=== PATIENT | female | born 1965 | race Caucasian/White ===

== ENCOUNTER → 2021-10-22 14:20 | Outpatient (BNVA) | payer OTHER, SELFPAY | PROVIDERS: Visit Provider Orthopaedic Surgery | DX: M54.50 Low back pain, unspecified (principal); M25.552 Pain in left hip; M25.551 Pain in right hip | CPT/HCPCS: 72100; 73522 ==

== ENCOUNTER 2021-12-16 10:09 | Outpatient (CLI) | payer OTHER, SELFPAY ==
--- NOTE | 2021-12-16 10:45 | MR_ITS ---
WS: [id number] MRI LUMBAR SPINE NONCONTRAST HISTORY: back pain, LEFT leg pain greater than RIGHT. COMPARISON: 10/31/2020 TECHNIQUE: Sagittal and axial multisequence imaging is submitted. Cervical spine osteophytes at C3-4 encroach upon the ventral thecal sac. Normal lumbar alignment. Marrow edema extends throughout the endplates of L4 and L5 with disc space n arrowing and desiccation. Minimal disc desiccation without narrowing at L5-S1. No fracture. Conus terminates normally at L1-2 disc level. L1-L2: Normal. L2-L3: Normal. L3-L4: Mild ligamentum flavum hypertrophy and facet arthritis. No stenosis. L4-L5: Diffuse annular disc bulging with a central disc protrusion contacting the ventral thecal sac and the traversing L5 nerve roots. There is an annular fissure in the RIGHT foramen. Marked ligamentu m flavum and facet arthritis. Increased fluid in the facet joints with widening up to 6.5 mm. Disc an d osteophyte extension into the foramina. Moderate to severe central and bilateral subarticular reces s stenosis and mild to moderate foraminal stenosis. L5-S1: Mild annular disc bulge with mild ligamentum flavum hypertrophy and facet arthritis. No stenos is. Paravertebral soft tissues are normal. MR/MR lumbar spine wo con* [id number] IMPRESSION: 1. Moderate to severe central and bilateral subarticular recess stenosis L4-5 with mild to moderate foraminal stenosis. Stenoses due to combination of disc a nd disc protrusions with facet and ligamentum flavum hypertrophy. Most signific ant contact on the L5 traversing nerve roots. Mild progression of stenosis sinc e the prior study. 2. Widening and increase fluid in the facet joints at L4-5.
== END 2021-12-16 10:10 | disposition home or self-care (01) ==
PROVIDERS: Visit Provider Orthopaedic Surgery
DX: M48.061 Spinal stenosis, lumbar region without neurogenic claudication (principal); M54.50 Low back pain, unspecified; M79.605 Pain in left leg; M79.604 Pain in right leg
CPT/HCPCS: 72148

== ENCOUNTER 2021-12-18 13:12 | Inpatient (IN) | payer OTHER, SELFPAY ==
[2021-12-16 13:22] VITALS: BMI 33.7
--- NOTE | 2021-12-16 13:23 | P.ANESASSM_ITS ---
Pre-Anesthetic Assessment Height/Weight: Height 1.73 m Preop Diagnosis: Spondylolisthesis L4-5 with stenosis Operation Date: 12/18/21 12:10 Proposed Procedures p Posterior Lumbar Interbody Fusion L4/5 [id number](Not Applicable) - Bran Estrada, Familial anesthetic complications: Hard time waking up Had a seizure during both of her c-sections Social No alcohol and No tobacco Exam alert, oriented x 3, clear to auscultation bilaterally and regular rate & rhythm Airway Dentition: false Pulmonary None reported CV/HEM Hypertension None reported Hepatic None reported GI gastric sleeve Metabolic Diabetes Mellitus [facility] [place]/skel Lower Back Pain Neuropsych Seizure (during her c-sections (grand mal)) Anesthetic Plan ASA status: 3 Anesthesia: General Risk of > 500 ml blood loss (7ml/kg in children): Yes, adequate IV access and fluids planned Medications/Allergies Home Medications Medication Instructions Recorded Confirmed Last Taken Type atorvastatin 20 mg tablet (Lipitor) 20 mg PO DAILY 10/22/21 12/16/21 Unknown History canagliflozin 300 mg tablet 300 mg PO DAILY 10/22/21 12/16/21 Unknown History (Invokana) duloxetine 30 mg capsule,delayed 30 mg PO DAILY 10/22/21 12/16/21 Unknown History release (Cymbalta) gabapentin 800 mg tablet 800 mg PO TID 10/22/21 12/16/21 Unknown History lisinopril 20 1 tab PO DAILY 10/22/21 12/16/21 Unknown History mg-hydrochlorothiazide 25 mg tablet metformin 1,000 mg tablet 1,000 mg PO BID 10/22/21 12/16/21 Unknown History diazepam 5 mg tablet (Valium) 5 mg PO ONCE 1 Days #1 tab 12/10/21 12/16/21 Unknown Rx cyclobenzaprine 10 mg tablet mg 12/16/21 Unknown History semaglutide (Ozempic) 0.25 mg SUBCUT UNK 12/16/21 12/16/21 Unknown History Allergies Allergy/AdvReac Type Severity Reaction Status Date / Time NSAIDS (Non-Steroidal Allergy ALGY-Rash Verified 12/16/21 12:54 Anti-Inflamma PFSH Anesthesia Social History Smoking and tobacco status: former smoker Data Anesthesia Cardiac Studies: No Data to Display
[2021-12-16 14:45] LABS: Anion Gap 20.8 (5-19); Blood Urea Nitrogen 52 mg/dL (6-20); Calcium 9.9 mg/dL (8.5-10.5); Carbon Dioxide 21 mmol/L (22-29); Chloride 99 mmol/L (98-107); Glomerular Filtration Rate 33.5 mL/min (90-130); Glucose 100 mg/dL (65-115); Osmolality Calculated 296 mOsm/kg (285-295); Potassium 4.8 mmol/L (3.5-5.1); Sodium 136 mmol/L (136-145)
[2021-12-18] VITALS (22 sets, daily range): BP systolic 95–125; BP diastolic 55–76; PULSE 57–89; RESP 14–20; TEMP 36.2–36.8; O2SAT 92–100; BMI 36.0
--- NOTE | 2021-12-18 | SCC_ITS ---
Procedure done: 1. L4/5 Interbody fusion with posterolateral fusion 2. Instrumentation L4/5 3. Cage at L4/5 4. Laminectomy L4 with partial facetectomies L4/5 5. use of autograft from same incision 6. allograft 7. Bone marrow aspirate from right Iliac crest 8. computer navigation/ stereotactic for spine 1 seconds of fluoroscopic guidance, for a cumulative dose of 77.2 mGy, was provided to Dr. Estrada by the radiology department. C-arm images of the lumbar spine were saved for the patient's permanent record. CECELIA
--- NOTE | 2021-12-18 | XR_ITS ---
WS: [id number] XR lumbar spine 2-3V* [id number] REASON FOR EXAM: plif l4/5 FINDINGS: Bilateral posterior pedicle screws at L4 and L5. Interbody fusion device at L4-L5. Surgical appliances appear in proper position and alignment. XR/XR lumbar spine 2-3V* [id number] IMPRESSION: Intraoperative images of L4-L5 surgery as above.
--- NOTE | 2021-12-18 10:59 | PM.HP ---
Providers/Chief Complaint Chief Complaint: PLIF L4/5 [id number] History of Present Illness Caroline Silva is a 56 year old female low back pain. Patient rates her pain 12/08 at todays visit. Patient states her pain has been on going for several years, aggressively getting worse. Patient states her pain is located in her tailbone and lower back, that radiates into her groin and hips. She states it occasionally travels down her legs. She states her pain is aggravated when she is standing and walking. Her pain is alleviated by sitting. She states her pain is worse in the mornings. She complains of loss of bladder control. Patient states she has tried physical therapy, chiropractic therapies, and epidural injections at pain management in [place] with no comfort from any treatment.? Review of Systems General: Reports: 10 or more systems reviewed and unremarkable except in HPI and below Const: Denies: fever(s) Eyes: Denies: eye discharge ENMT: Denies: throat pain Card: Denies: chest pain Resp: Denies: dyspnea GI: Denies: nausea or vomiting : Reports: urinary incontinence Musc: Reports: back pain Skin/Breast: Denies: rash Psych: Denies: anxiety Endo: Denies: polyuria Eddie/Lymph: Denies: easy bruising All/Imm: Denies: facial swelling Medications/Allergies Home Medications Medication Instructions Recorded Confirmed Last Taken Type atorvastatin 20 mg tablet (Lipitor) 20 mg PO DAILY 10/22/21 12/18/21 12/17/21 History canagliflozin 300 mg tablet 300 mg PO DAILY 10/22/21 12/18/21 12/17/21 History (Invokana) duloxetine 30 mg capsule,delayed 30 mg PO DAILY 10/22/21 12/18/21 12/17/21 History release (Cymbalta) gabapentin 800 mg tablet 800 mg PO TID 10/22/21 12/18/21 12/17/21 History lisinopril 20 1 tab PO DAILY 10/22/21 12/18/21 12/17/21 History mg-hydrochlorothiazide 25 mg tablet metformin 1,000 mg tablet 1,000 mg PO BID 10/22/21 12/18/21 12/17/21 History diazepam 5 mg tablet (Valium) 5 mg PO ONCE 1 Days #1 tab 12/10/21 12/16/21 Unknown Rx cyclobenzaprine 10 mg tablet 10 mg PO TID PRN 12/16/21 12/18/21 12/17/21 History semaglutide (Ozempic) 0.25 mg SUBCUT DIRECTED 12/16/21 12/18/21 12/17/21 History Allergies Allergy/AdvReac Type Severity Reaction Status Date / Time NSAIDS (Non-Steroidal Allergy ALGY-Rash Verified 12/16/21 12:54 Anti-Inflamma PFSH Acute PFSH: Social History Smoking and tobacco status: former smoker Vitals/I&O/Wt Last Vital Signs Temp 97.3 F L 12/18/21 10:46 Pulse 78 12/18/21 10:46 Resp 16 12/18/21 10:46 BP 108/68 12/18/21 10:46 Pulse Ox 100 12/18/21 10:46 Weight last 48 hrs Weight 229 lb Physical Exam Narrative: CONSTITUTIONAL: The patient is a normal appearing [] in no apparent distress. GENERAL: Patient in no acute distress. CARDIAC: Regular rate and rhythm. CHEST: Normal inspiratory effort, normal respiratory rate. ABDOMEN: Soft and nontender. SKIN: Clear, warm and intact. NEURO?PSYCH: The patient is alert and oriented to person, place and time. Sensorv /SILT Motor StrengthShoulder abduction C5 5/5Wrist extension C6 5/5Elbow extension C7 5/5Hand Drill Press Set Up Operator C8 5/5Finger abduction T15/5 Radial/ Ulnar/ Median n intact LowerSensory (SILT)Motor StrengthHin flexion L2/3Ant/inner thigh 5/5Hip adduction L2/3 5/5Knee extension L4 Lat thigh, 5/5Toe dorsiflexion L5 5/5Ankle dorsiflexion L5/ W48Cbrgvqk flexion S1 5/5 DTRBleeps 2+Triceps 2+Brachioradialis 2+Patellar 2+Achilles 2+ MUSCULOSKELETAL: [] UPPEREXTREMITIES: The patient had full active ROM in fingers, wrist, elbow, and shoulder. The patient demonstrated ability to fully flex/extend/abduct/adduct fingers, make ok sign, cross 2nd/3rd digits, extend 1st digit fully.. Radial pulse 2+, CR<2 seconds. LOWER EXTREMITIES: Pt has full, active ROM of toes, ankle, knee, and hip. Dorsalis pedis/posterior tibialis pulses 2+, CR<2 seconds. SPINE: Skin warm, dry, intact. Data : 12/16/21 13:15 A&P Assessment and plan (1) Spondylolisthesis at L4-L5 level: L4/5 PLIF Status: Acute Attestations Medical Necessity Statement*: failed conservative tx Coding Level of Care Code Acute [employer] Instruction Facilitator for [facility] Diagnoses Spondylolisthesis at L4-L5 level M43.16
--- NOTE | 2021-12-18 11:02 | ANES.PAUD2 ---
Pre-Anesthetic Update Pre-Anesthetic Assessment: Date of Surgery/Procedure: 12/18/21 Preop Diagnosis: Spondylolisthesis L4-5 with stenosis Proposed Procedure: Operation Date: 12/18/21 12:10 Proposed Procedures p Posterior Lumbar Interbody Fusion L4/5 [id number](Not Applicable) - Bran Estrada, DO Any changes to Pre-Anesthetic Assessment?: No Last Intake: Intake Last Liquid Date 12/17/21 Last Liquid Time 21:00 Last Solid Date 12/17/21 Last Solid Time 18:00 Labs Last 48hrs: BMP 12/16/21 13:15 Sodium 136 Potassium 4.8 Chloride 99 Carbon Dioxide 21 L BUN 52 H Creatinine 1.6 H Glucose 100 Calcium 9.9 Vitals: Temperature 97.3 F L 12/18/21 10:46 Temperature Source Temporal Artery S can 12/18/21 10:46 Pulse Rate 78 12/18/21 10:46 Respiratory Rate 16 12/18/21 10:46 Blood Pressure 108/68 12/18/21 10:46 Blood Pressure Crystal n 81 12/18/21 10:46 Pulse Oximetry 100 12/18/21 10:46 Oxygen Delivery Me thod 12/18/21 10:46 Exam: Pre-Anes Outpt Exam: alert, oriented x 3, clear to auscultation bilaterally and regular rate & rhythm Cardiac Studies: No Data to Display
[2021-12-18] MEDS: sodium chloride 0.9% 1,000 ML 30 ML IV (11:05)
[2021-12-18 11:29] LABS: Basophils % 0.6 %; Eosinophils # 0.1 10^3/uL (0.0-0.8); Eosinophils % 2.1 %; Hematocrit 41.8 % (37.0-47.0); Hemoglobin 12.3 g/dL (11.5-15.3); Mean Corpuscular HGB Conc 29.4 g/dL (30.0-36.0); Mean Corpuscular Hemoglobin 27.5 pg (28.0-34.0); Mean Corpuscular Volume 93.3 fl (81-99); Monocytes # 0.6 10^3/uL (0.2-0.9); Monocytes % 9.5 %; Neutrophils # 3.82 10^3/uL (1.8-7.7); Neutrophils % 57.5 %; Nucleated Red Blood Cells % 0 %; Platelet Count 301 10^3/cmm (130-400); Red Blood Count 4.48 10^6/uL (4.1-5.3); Red Cell Distribution Width 13.3 % (12.1-15.1); White Blood Count 6.6 10^3/uL (4.0-10.0)
[2021-12-18] MEDS: ceFAZolin 2,000 MG in sodium chloride 0.9% (plus) 50 ML 100 MG IV ×2 (11:39→20:20)
[2021-12-18] MEDS: vancomycin 1,000 MG SDV 1000 MG XX (12:20)
[2021-12-18] MEDS: heparin, porcine 1,000 unit/mL INJ 10 mL 10000 UNIT IRRIGATION (12:20)
[2021-12-18] MEDS: fentaNYL 50 mcg/mL INJ 2mL IVP ×2 (14:32→14:53)
--- NOTE | 2021-12-18 14:34 | PM.OP ---
Operative Report Date of procedure: December 18, 2021 Pre-op diagnosis: Preop Diagnosis Spondylolisthesis L4-5 with stenosis Post-op diagnosis: same Procedure done: 1. L4/5 Interbody fusion with posterolateral fusion 2. Instrumentation L4/5 3. Cage at L4/5 4. Laminectomy L4 with partial facetectomies L4/5 5. use of autograft from same incision 6. allograft 7. Bone marrow aspirate from right Iliac crest 8. computer navigation/ stereotactic for spine Surgeon: Bran Estrada Learning Disabled Teacher: Romulo Viramontes Learning Disabled Teacher: The manager surgical, Romulo Viramontes, PAC was needed for his expertise under the microscope. He was important and necessary throughout the procedure to complete in a safe and timely manner. He assisted with patient positioning prepping and draping tissue retraction suctioning of the operative field protection of the dural sac and tissue closure Estimated blood loss (mL): 100 Procedure: 1. L4/5 Interbody fusion with posterolateral fusion 2. Instrumentation L4/5 3. Cage at L4/5 4. Laminectomy L4 with partial facetectomies L4/5 5. use of autograft from same incision 6. allograft 7. Bone marrow aspirate from right Iliac crest 8. computer navigation/ stereotactic for spine Patient is brought to the operative suite. After undergoing anesthesia, the patient had neuro monitoring attached. Patient was then placed in the prone position on the Davi table. All areas of impingement were well-padded. Patient was then prepped and draped in the normal sterile fashion. Skin incision was then made over the L4 to L5. Subperiosteal dissection was made out to the transverse processes of L4 and L5. The [employer] bone marrow aspirate kit was used to aspirate bone marrow aspirate right iliac crest. This was done by using the sharp probe to open up the bone. Aspiration was performed and then the blunt probe was then used to dissect down to through the bone tunnel. An aspirating well drawn back a millimeter approximately 20 cc of bone marrow aspirate was used. Admixed with the allograft and autograft bone that will be used. Attention was brought to placing the pins in the right iliac crest for the computer navigation. 2 pins were placed into the right iliac crest. These pins will be removed. At the end of the case. The fiducial was attached. The C-arm was brought in spinal patient and the information from the C-arm was loaded the computer to facilitate placing screws under computer navigation. The technique for placing the pedicle screws was to use a drill followed by the gearshift probe linked to computer navigation Followed by the ball probe to feel the superior inferior medial lateral haro of the pedicles. Then placement of the screws linked to the computer navigation Was done at each pedicle. Screws were placed at L4 bilaterally and L5 bilaterally. Next attention was brought to performing the laminectomy of L4. This was done using the high-speed bur Kerrisons and curettes. Once the lamina was removed and then attention was brought to performing a partial facetectomy on the contralateral side. This was done again using the high-speed bur curettes and Kerrisons. The ligamentum flavum was taken down bilaterally from L4 to L5. Attention was then brought to the facet on the ipsilateral side. The facet was taken down. The L5 nerve was decompressed as it passed around the L5 pedicle. The laminectomy was done for purposes of decompressing the nerve as well as placement of the cage. The L4 nerve was identified as it traversed through the L4/5 foramen. The thecal sac was identified and retracted. The L4/5 disc base was identified. Using a knife the disc base was opened. And then sequential mila were placed. The first shaver was a 6 and the last shaver was a 10. Using a pituitary and down going curette the endplates were scraped and disc material was removed from the space. Once adequate decompression of the disc base was felt to be had. Osteoamp sponge was packed into the anterior aspect of the disc base. Then a size 10 cage from [employer] was placed after packing osteoamp into the cage. While placing the cage the thecal sac and L5 nerve was protected. C arm was used to ensure that the cages placed in the appropriate position. Attention was then brought to attaching the rods to the screws placed in the L4 bilaterally and L5 bilaterally.Caps were torqued into position. Locking the construct in place. Wound was copiously irrigated and then attention was brought to decorticating the facets and transverse processes laterally. Bone that was taken down from the lamina was used along with osteoamp fibers and sponges were packed into the lateral gutters along the facet joints. This was done bilaterally. Wound was then closed in a layered fashion starting with the thoracolumbar fascia. 0-vicryl was used the sub cutaneous tissue was closed with 2-0 vicryl and skin with 4-0 monocryl. Glue was then used to seal the skin and a steril dressing was applied. Patient was then placed in the supine position. The endotracheal tube was removed and patient was transferred to the PACU in stable condition.
[2021-12-18] MEDS: HYDROmorphone 1 mg/mL INJ 1 mL 0.5 MG IVP (15:01)
[2021-12-18] MEDS: gabapentin 400 mg Capsule 800 MG PO ×2 (16:05→20:19)
[2021-12-18] MEDS: lactated ringers 1,000 ML 90 ML IV (16:05)
[2021-12-18] MEDS: docusate sodium 100 mg Capsule PO (17:15)
[2021-12-18] MEDS: metformin 500 mg Tablet 1000 MG PO (17:15)
[2021-12-18] MEDS: cyclobenzaprine 10 mg Tablet PO (17:24)
[2021-12-18] MEDS: HYDROcodone-acetaminophen 5-325 mg Tablet PO ×2 (17:24→21:32)
[2021-12-18] MEDS: ketorolac 30 mg/mL INJ IVP (18:33)
[2021-12-19] VITALS (20 sets, daily range): BP systolic 68–121; BP diastolic 42–73; PULSE 66–85; RESP 16–20; TEMP 36.4–36.9; O2SAT 95–100
[2021-12-19] MEDS: sodium chloride 0.9% 250 ML IV ×2 (01:09→06:10)
[2021-12-19 01:32] LABS: Basophils % 0.3 %; Hematocrit 34.1 % (37.0-47.0); Hemoglobin 10.4 g/dL (11.5-15.3); Lymphocytes # 0.9 10^3/uL (0.8-4.8); Lymphocytes % 9.6 %; Mean Corpuscular HGB Conc 30.5 g/dL (30.0-36.0); Mean Corpuscular Volume 91.7 fl (81-99); Mean Platelet Volume 10.1 fL (7.4-10.4); Monocytes # 0.7 10^3/uL (0.2-0.9); Monocytes % 6.8 %; Neutrophils # 7.91 10^3/uL (1.8-7.7); Nucleated Red Blood Cells % 0 %; Platelet Count 287 10^3/cmm (130-400); Red Blood Count 3.72 10^6/uL (4.1-5.3); Red Cell Distribution Width 13.2 % (12.1-15.1); White Blood Count 9.5 10^3/uL (4.0-10.0)
[2021-12-19 01:50] LABS: Alanine Aminotransferase 13 U/L (0-33); Albumin Level 3.3 g/dL (3.5-5.2); Alkaline Phosphatase 67 IU/L (35-105); Anion Gap 20.1 (5-19); Aspartate Amino Transferase 11 U/L (0-32); Blood Urea Nitrogen 56 mg/dL (6-20); Calcium 8.7 mg/dL (8.5-10.5); Carbon Dioxide 17 mmol/L (22-29); Chloride 103 mmol/L (98-107); Globulin 2.4 g/dL (1.3-4.6); Glomerular Filtration Rate 33.5 mL/min (90-130); Glucose 126 mg/dL (65-115); Osmolality Calculated 297 mOsm/kg (285-295); Potassium 5.1 mmol/L (3.5-5.1); Sodium 135 mmol/L (136-145); Total Bilirubin 0.2 mg/dL (0.15-1.2); Total Protein 5.7 g/dL (6.6-8.7)
[2021-12-19] MEDS: lactated ringers 1,000 ML 90 ML IV ×2 (02:05→17:00)
[2021-12-19] MEDS: sodium chloride 0.9% 500 ML 999 ML IV (03:47)
--- NOTE | 2021-12-19 04:16 | PC.NURSE ---
physician consult order pt had become hypotensive over the course of the night, hospitalist was contacted, 2 separate fluid bolus's were ordered. night hospitalist contacted this nurse to request that the surgeon be contacted to see if he wanted a hospitalist consult for the pt so that day shift could follow along with pt care. this nurse spoke with dr matthews over the phone, consult for hospitalist was approved, order placed. will continue to monitor.
[2021-12-19] MEDS: ceFAZolin 2,000 MG in sodium chloride 0.9% (plus) 50 ML 100 MG IV ×2 (04:25→11:23)
[2021-12-19 04:27] LABS: Cortisol Random 2.92 ug/dL (2.47-19.5)
[2021-12-19 04:55] LABS: Add Urine Microscopic? YES; Bilirubin Urine Neg (Negative); Blood Urine Neg (Negative); Glucose Urine UA 2+ (Normal); Ketones Urine 1+ (Negative); Leukocyte Esterase Urine 2+ (Negative); Nitrate Urine Negative (Negative); Protein Urine Neg (Negative); RBC Urine 0-4 /hpf (0-2); Specific Gravity, Urine 1.015 (1.005-1.030); Urine Appearance Clear (CLEAR); Urine Color Colorless (Yellow); Urobilinogen Urine Norm (Negative); pH Urine 5 (5-7)
[2021-12-19 04:56] LABS: Add Urine Culture? Yes; Bacteria Urine 1+ /hpf; WBC Urine 25-40 /hpf (0-5)
[2021-12-19 05:29] LABS: Glucose Point of Care 88 mg/dL (70-110)
[2021-12-19] MEDS: hydrocortisone 100 mg/2 mL SDV IVP (06:03)
--- NOTE | 2021-12-19 06:06 | P.HP_ITS ---
Providers/Chief Complaint Admitting Physician: Bran Estrada DO Chief Complaint: PLIF L4/5 [id number] History of Present Illness Pleasant 56-year-old lady status post lumbar laminectomy and fusion, was found to have hypotension overnight, blood pressure down to 75/59, was given 250 mill bolus, with transient improvement. Antihypertensives including lisinopril, HCTZ, but also other medications that could contribute including gabapentin were held, but again blood pressure down to 68/42. Additional bolus 500 mL normal s yuval was administered with again improvement in blood pressure, currently up to 82/56. She reports that she has been having dry mouth. She reports that at home she has been experiencing intermittent episodes of dizziness/lightheadedness when she stands up. About 2 months ago she had an episode of collapse while standing, although did not lose consciousness. Reports MRI was done after that and was normal. Ports she has been taking all her medications at home including Antivert tenses, combination lisinopril/HCTZ. She reports about a year ago she had a series of steroid injections in the [facility]. She is currently awake and alert, denies any complaints apart from feeling fatigued/tired, which has been going on for a while. She denies any recent fever or chills. Denies any chest pain or pressure. Denies any trouble breathing. Recheck blood count, with some decrease in hemoglobin from 12.3-10.4 postoperatively. Review of Systems Const: Reports: fatigue; Denies: fever(s), chills, body aches or malaise Eyes: Denies: change in vision, eye discomfort or eye redness ENMT: Denies: throat pain, oral sores or ear or mastoid pain Card: Denies: chest pain, edema, pre-syncope or dyspnea on exertion Resp: Denies: dyspnea, productive cough, change in phlegm color or hemoptysis GI: Denies: abdominal pain, nausea, vomiting, diarrhea, constipation, hematochezia or melena : Denies: flank pain, urinary frequency or hematuria Musc: Reports: back pain; Denies: joint swelling or joint redness Skin/Breast: Denies: rash or new lesions Neuro: Reports: dizziness (when standing up); Denies: headache(s), numbness in extremities, weakness in extremities, confusion or seizure-like activity Endo: Denies: polyuria or polydipsia Eddie/Lymph: Denies: easy bleeding or tender lymph nodes All/Imm: Denies: urticaria or tongue swelling Medications/Allergies Home Medications Medication Instructions Recorded Confirmed Last Taken Type atorvastatin 20 mg tablet (Lipitor) 20 mg PO DAILY 10/22/21 12/18/21 12/17/21 History canagliflozin 300 mg tablet 300 mg PO DAILY 10/22/21 12/18/21 12/17/21 History (Invokana) duloxetine 30 mg capsule,delayed 30 mg PO DAILY 10/22/21 12/18/21 12/17/21 History release (Cymbalta) gabapentin 800 mg tablet 800 mg PO TID 10/22/21 12/18/21 12/17/21 History lisinopril 20 1 tab PO DAILY 10/22/21 12/18/21 12/17/21 History mg-hydrochlorothiazide 25 mg tablet metformin 1,000 mg tablet 1,000 mg PO BID 10/22/21 12/18/21 12/17/21 History diazepam 5 mg tablet (Valium) 5 mg PO ONCE 1 Days #1 tab 12/10/21 12/16/21 Unknown Rx cyclobenzaprine 10 mg tablet 10 mg PO TID PRN 12/16/21 12/18/21 12/17/21 History semaglutide (Ozempic) 0.25 mg SUBCUT DIRECTED 12/16/21 12/18/21 12/17/21 History Allergies Allergy/AdvReac Type Severity Reaction Status Date / Time NSAIDS (Non-Steroidal Allergy ALGY-Rash Verified 12/16/21 12:54 Anti-Inflamma PFSH Acute PFSH: Medical History Degenerative disc disease DM type 2 (diabetes mellitus, type 2) HTN (hypertension) Hyperlipidemia Surgical History Hx of gastric bypass Family History Mother Dementia Diabetes Pulmonary hypertension Social History Smoking and tobacco status: former smoker Alcohol intake: never Substance/Drug Use: never Lives independently: Yes Marital status: Vitals/I&O/Wt Last Vital Signs Temp 97.5 F L 12/19/21 04:00 Pulse 75 12/19/21 04:00 Resp 19 H 12/19/21 04:00 BP 88/56 12/19/21 04:00 Pulse Ox 100 12/19/21 04:00 12/18/21 12/18/21 12/19/21 14:59 22:59 06:59 Intake Total 350 / 350 1390 / 1740 3177.5 / 4917.5 Output Total 350 / 350 305 / 655 950 / 1605 Balance 0 / 0 1085 / 1085 2227.5 / 3312.5 Weight last 48 hrs Weight 114.577 kg Weight 110.677 kg Physical Exam Narrative: at bedside Const: COMMON NORMALS: alert GENERAL APPEARANCE: cooperative NUTRITIONAL APPEARANCE: obese ORIENTATION/CONSCIOUSNESS: Yes awake HENMT: COMMON NORMALS: normocephalic, EAC's normal, Normal external nose present and moist oral mucous membranes HEAD & SCALP: normocephalic NOSE: Normal external nose present EXTERNAL AUDITORY CANAL: EAC's normal Neck/C-Spine: COMMON NORMALS: no meningeal signs Chest: CHEST: Yes Symmetrical chest wall rise Resp: COMMON NORMALS: clear to auscultation bilaterally AUSCULTATION: clear to auscultation bilaterally Cardio: COMMON NORMALS: regular rate, regular rhythm and No murmurs present (Cardio) RATE: regular rate RHYTHM: regular rhythm GI: COMMON NORMALS: Normal to inspection, nondistended, normoactive bowel soun ds present, Soft to palpation and non-tender PALPATION: Yes Soft to palpation Back/Pelvis: OTHER: Surgical drain lumbar spine Extremity: COMMON NORMALS: no pedal edema Neuro: COMMON NORMALS: moves all extremities SENSORIUM/ORIENTATION: Yes alert MENINGEAL SIGNS: Yes no meningeal signs Psych: COMMON NORMALS: mental status grossly normal Skin: COMMON NORMALS: no wounds RASHES: no rashes Urinary Catheter Management: [place]: Cath Placed During This Visit: yes Reason for Continuing Indwelling Catheter: Other Urinary Catheter Date of Insertion: 12/18/21 Urinary Catheter Time of Insertion: 12:00 Data : 12/19/21 01:22 12/19/21 01:22 A&P Assessment and plan (1) Hypotension: Received 250 and then 500 mL NS bolus with improvement in blood pressures. Currently up to 86/56. Has been having dry mouth, dry skin. Appears dehydrated. At home continue taking her antihypertensive for which she states has been on for years lisinopril-HCTZ. Hold antihypertensives. Hold gabapentin. Caution with pain medication. Hold diazepam. Additional bolus 250 mL, reassess volume status, blood pressures. Additionally adrenal insufficiency. Serum cortisol is only 2.92. Discussed with her risks of initiation of stress dose steroids given postoperative period, diabetes. She is agreeable, starting with hydrocortisone, 100 mg x 1, continue 50 mg every 6 hours. Taper. For now bedrest. Additional incidentally noted to have likely urinary tract infection, although otherwise does not appear to be having sepsis. She reports episodes of lightheadedness when she stands up which has been going on for a while. After blood pressure improved sufficiently enough for her to be able to get up, would additionally assess orthostatic vital signs. EKG. Cardiac monitoring. Assess TTE. She otherwise has no chest pain or pressure, no cough, no shortness of breath, saturating well, without any tachycardia, no extremity edema, suspicion for PE at this time would be low. Unfortunately D-dimer would likely be elevated secondary to surgical procedure. Please monitor for symptoms, in case of any additional symptoms suggestive of PE, seek additional evaluation. Status: Acute (2) UTI (urinary tract infection): Cipro, follow-up urine culture. Status: Acute (3) Spondylolisthesis at L4-L5 level: Continue postoperative management. Follow-up blood count with postoperative anemia, hemoglobin down to 10.4. Possibly also some dilutional effect with IV hydration. Status: Acute (4) ALEXANDRA (acute kidney injury): ALEXANDRA versus CKD. Baseline renal function unknown. Discussed with her creatinine is 1.6. Receiving fluid challenge. Avoid NSAIDs. Hold lisinopril, HCTZ. Support blood pressure. Reassess renal function. Status: Acute Plan History of gastric bypass: Avoid NSAIDs HTN DM2: Hold oral hypoglycemics. Insulin sliding scale. Consistent carbohydrate diet. HLD Attestations Medical Necessity Statement*: As per primary team. Admission additionally is currently required for assessment of management of hypotension. Coding Level of Care Code Acute Melter Helper for [facility] Diagnoses Hypotension I95.9 UTI (urinary tract infection) N39.0 Spondylolisthesis at L4-L5 level M43.16 ALEXANDRA (acute kidney injury) N17.9
--- NOTE | 2021-12-19 06:10 | USCV_ITS ---
Caroline Silva Age: 56 Gender: F : 1965 Exam Date: 12/19/2021 13:36 Ordering Phys: Santo De Guzman MD Technologist: Casper Izaguirre Exam Location: [facility] [place] Indication: hypotension BP: 88 / 56 HR: 72 Rhythm: Sinus Technical Quality: Adequate MEASUREMENTS (Male / Female) Normal Values 2D ECHO LV Diastolic Diameter PLAX 3.0 cm 4.2 - 5.9 / 3.9 - 5.3 cm LV Systolic Diameter PLAX 1.8 cm IVS Diastolic Thickness 0.7 cm 0.6 - 1.0 / 0.6 - 0.9 cm IVS Systolic Thickness 0.9 cm LVPW Diastolic Thickness 1.3 cm 0.6 - 1.0 / 0.6 - 0.9 cm LVPW Systolic Thickness 1.2 cm LVOT Diameter 2.0 cm LV Ejection Fraction 2D Teich 69.8 % LV Ejection Fraction MOD 2C 74.9 % LV Ejection Fraction 2C AL 76.0 % LA Diameter 3.2 cm LA Width 3.2 cm LA Height 5.2 cm RA Width 2.8 cm RA Height 4.4 cm Aorta at Sinotubular Diameter 2.6 cm IVC Diameter 1.8 cm M-MODE Aortic Annulus Diameter 2.7 cm LA Ao Ratio MM 1.2 MV E Point Septal Separation 0.3 cm DOPPLER AV Peak Velocity 180.0 cm/s LVOT Peak Velocity 111.0 cm/s AV Area Cont Eq vti 2.4 cm squared AV Area Cont Eq pk 2.0 cm squared MV Peak Velocity 121.0 cm/s MV Area PHT 4.5 cm squared Mitral E to A Ratio 0.9 MV E' Velocity 57.0 cm/s Mitral E to MV E' Ratio 5.3 Mitral E to LV E' Lateral Ratio 4.7 Mitral E to LV E' Septal Ratio 6.1 TR Peak Velocity 292.2 cm/s TR Peak Gradient 34.2 mmHg TR Mean Velocity 238.2 cm/s TR Mean Gradient 25.1 mmHg TR Velocity Time Integral 86.7 cm Right Atrial Pressure 3.0 mmHg Pulmonary Artery Systolic Pressu 37.2 mmHg RV Acceleration Time 0.1 s RV Ejection Time 0.3 s RV AcT/ET 0.3 FINDINGS Left Ventricle Normal left ventricular size. LV systolic function is normal with EF of 55-60%. No regional wall motion abnormalities. Right Ventricle The right ventricle is normal in size and function. Right Atrium The right atrium is normal in size. Left Atrium The left atrium is normal in size. Mitral Valve Structurally normal mitral valve without significant stenosis or prolapse. There is trace mitral regurgitation. Aortic Valve Structurally normal aortic valve without significant sclerosis or stenosis. There is no aortic regurgitation. Tricuspid Valve Structurally normal tricuspid valve without significant stenosis. Trace tricuspid regurgitation. Pulmonary artery systolic pressure is normal. Pulmonic Valve Not well visualized Pericardium Normal pericardium without effusion. Aorta Normal ascending aorta dimension. IVC CONCLUSIONS LV systolic function is normal with EF 55-60%. There is trace mitral regurgitation. Trace tricuspid regurgitation. No comparison studies are available Galen Good MD (Electronically Signed) Final Date: 19 December 2021 14:52 S
--- NOTE | 2021-12-19 06:24 | ECG_ITS ---
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 Measurements Intervals [place] Rate: 66 P: 60 AK: 181 QRS: 42 QRSD: 104 T: 39 QT: 398 QTc: 417 Interpretive Statements SINUS RHYTHM No previous ECG available for comparison Electronically Signed On 12-19-2021 21:19:55 CDT by Mary Matthews M.D. [email or web address]
[2021-12-19 07:39] LABS: Basophils # 0.1 10^3/uL (0.0-0.1); Basophils % 0.6 %; Eosinophils # 0.1 10^3/uL (0.0-0.8); Eosinophils % 1.1 %; Hematocrit 34.1 % (37.0-47.0); Hemoglobin 11.1 g/dL (11.5-15.3); Lymphocytes # 1.6 10^3/uL (0.8-4.8); Lymphocytes % 15.4 %; Mean Corpuscular HGB Conc 32.6 g/dL (30.0-36.0); Mean Corpuscular Hemoglobin 27.4 pg (28.0-34.0); Mean Corpuscular Volume 84.2 fl (81-99); Mean Platelet Volume 10.1 fL (7.4-10.4); Monocytes # 0.8 10^3/uL (0.2-0.9); Monocytes % 7.8 %; Neutrophils # 7.54 10^3/uL (1.8-7.7); Neutrophils % 74.6 %; Nucleated Red Blood Cells % 0 %; Platelet Count 317 10^3/cmm (130-400); Red Blood Count 4.05 10^6/uL (4.1-5.3); Red Cell Distribution Width 13.4 % (12.1-15.1); White Blood Count 10.1 10^3/uL (4.0-10.0)
--- NOTE | 2021-12-19 07:41 | PM.PN ---
Subjective Subjective: POD 1 Patient resting comfortably. Has mild back pain. Reports her legs feel much better. Denies any shortness of breath, chest pain, headaches. Family is present. Vitals/I&O/Wt Last Vital Signs Temp 97.5 F L 12/19/21 04:00 Pulse 67 12/19/21 07:30 Resp 16 12/19/21 07:20 BP 93/62 12/19/21 07:37 Pulse Ox 100 12/19/21 07:20 12/18/21 12/19/21 12/19/21 22:59 06:59 14:59 Intake Total 1390 / 1740 3177.5 / 4917.5 Output Total 305 / 655 950 / 1605 Balance 1085 / 1085 2227.5 / 3312.5 Weight last 48 hrs Weight 252 lb 9.6 oz Weight 244 lb Physical Exam Narrative: Patient presents alert and oriented x3 with a good general appearance normal mood and affect. Normal coordination normal stability. Mild tenderness around the incisional site with the incision appear to be clean and dry. Hemovac intact. No signs of erythema or drainage. No signs of infection. Patient denies any fevers or chills. 5/5 motor strength both lower extremities with negative straight leg raise bilaterally. Calves are supple no medial thigh tenderness. Pulses are 2+ at the dorsalis pedis and posterior tibial region. Good capillary refill throughout normal sensation light touch both lower extremities. Urinary Catheter Management: Sparks: Cath Placed During This Visit: yes Reason for Continuing Indwelling Catheter: Other Urinary Catheter Date of Insertion: 12/18/21 Urinary Catheter Time of Insertion: 12:00 Data : 12/19/21 01:22 12/19/21 01:22 A&P Assessment and plan (1) Hypotension: Patient remains hypotensive after attempts to bolus 250 mg normal saline x3. She denies any chest pain or shortness of breath. From a lumbar standpoint she is noticed her legs are improving. She has been restricted to bedrest due to her hypotension. Encouraged incentive spirometry for pulmonary toilet. When she is cleared from a medical perspective to mobilize with physical therapy work with her discontinue Sparks catheter and Hemovac drains once cleared medically. Status: Acute (2) Status post lumbar spinal fusion: Status: Acute Attestations Medical Necessity Statement*: defer to Medical Team Coding Level of Care Code Acute Intermediate Manager for Chg Fwd Diagnoses Hypotension I95.9 Status post lumbar spinal fusion Z98.1
[2021-12-19 07:52] LABS: Ketone (Acetest) Serum Negative (Negative)
[2021-12-19 08:05] LABS: Anion Gap 21.9 (5-19); Blood Urea Nitrogen 51 mg/dL (6-20); Calcium 8.7 mg/dL (8.5-10.5); Carbon Dioxide 17 mmol/L (22-29); Chloride 101 mmol/L (98-107); Glomerular Filtration Rate 33.5 mL/min (90-130); Glucose 80 mg/dL (65-115); Osmolality Calculated 293 mOsm/kg (285-295); Potassium 4.9 mmol/L (3.5-5.1); Sodium 135 mmol/L (136-145)
[2021-12-19] MEDS: docusate sodium 100 mg Capsule PO ×2 (08:51→17:02)
[2021-12-19] MEDS: duloxetine 30 mg Capsule PO (08:51)
[2021-12-19] MEDS: atorvastatin 40 mg Tablet 20 MG PO (08:51)
[2021-12-19] MEDS: ciprofloxacin 400 MG/200 ML PREMIX 200 MG IV ×2 (08:56→20:51)
--- NOTE | 2021-12-19 09:47 | PC.CHAP ---
Pastoral Care Encounter/Spiritual Assessment Type of Contact [] Declined senior teradata developer visit [] Patient/Family/Request visit [] Outpatient visit [] Follow-up visit [] Physician referral [] Code/Alert [x] Routine visit [] Staff referral [] Actively dying [] Patient sleeping [] Family support [] [] Out of room [] Palliative care [] [x] Receiving care in room [] Pre-surgical visit [] Trauma [] Long length of stay [] ICU visit [] Other: Relational/Emotional Strength [x] Patient feels connected with others/family/visitors/staff [] Distress [] Loneliness/isolation [] Abandonment Spirituality of Patient [x] Person of Nubia [] Attends Adventism of their Nubia [x] Believes in Prayer [] Reads Bible or Restorationist materials [] There are Spiritual issues to be addressed Cop Winder Interventions [x] Prayer [x] Active listening [x] Non-anxious presence [x] Spiritual/emotional support [x] Crisis/trauma care [x] Spiritual counseling [] Bereavement support [] Provided bereavement packet [] Provided Bible/devotional materials [] Provided toy/stuffed animal, coloring book to patient or family member [] Provided Communion [] Anointing/Brothers [] Salvation [x] Completed spiritual assessment [] Other: Impact on Illness or Injury [] Angry [] Fearful [x] Anxious [] Often cries [] Exhaustion [] Unable to work [] Unable to attend adventist [] Unable to walk/stand [] Unable to read [] Unable to drive [] Unable to eat/drink [] Unable to sleep [] Unable to be with family [] Patient intubated [] Other: Summary had surgeryon back low blood pressuer raphael be going home soon +1 Time spent with patient 10 mins
--- NOTE | 2021-12-19 09:50 | PM.PN ---
Subjective Subjective: Caroline feels like her pain is under control today. Denies any nausea, vomiting or abdominal pain. Consultation by Dr. De Guzman reviewed. Discussed again reason for hydrocortisone. Medications: Reviewed: Yes Vitals/I&O/Wt Last Vital Signs Temp 97.5 F L 12/19/21 04:00 Pulse 67 12/19/21 07:30 Resp 16 12/19/21 07:20 BP 96/68 12/19/21 09:37 Pulse Ox 100 12/19/21 07:20 12/18/21 12/19/21 12/19/21 22:59 06:59 14:59 Intake Total 1390 / 1740 3177.5 / 4917.5 250 / 250 Output Total 305 / 655 950 / 1605 Balance 1085 / 1085 2227.5 / 3312.5 250 / 250 Weight last 48 hrs Weight 114.577 kg Weight 110.677 kg Physical Exam Narrative: General exam no distress Neck is supple no lymphadenopathy thyromegaly Cardiovascular regular rate and rhythm without murmur Lungs clear Abdomen is soft, positive bowel sounds Extremities no cyanosis clubbing or edema Urinary Catheter Management: Sparks: Cath Placed During This Visit: yes Reason for Continuing Indwelling Catheter: Other Urinary Catheter Date of Insertion: 12/18/21 Urinary Catheter Time of Insertion: 12:00 Data : 12/19/21 07:18 12/19/21 07:18 A&P Assessment and plan (1) Hypotension: Received several boluses for low blood pressure, with responsiveness. Cortisol level was low considering scenario. Hydrocortisone initiated appropriately. Continue to hold diazepam and gabapentin. Holding antihypertensives. Caution with use of muscle relaxants and pain medication. Unlikely UTI caused hypotension No evidence of significant blood loss to cause this. Patient reports some significant dizziness in the last year and 1 fainting episode. As improves, will reduce/taper steroid dose. Will need outpatient endocrine follow-up Check TSH on blood in lab. Consider orthostatic blood pressures prior to discharge Echocardiogram has been ordered, will follow up. No suspicion at this time for pulmonary embolism. No evidence of tachycardia, or respiratory symptoms. Status: Acute (2) UTI (urinary tract infection): Continue ciprofloxacin and await culture Status: Acute (3) Spondylolisthesis at L4-L5 level: Continue postoperative management. Very mild acute postoperative anemia, not enough to explain hypotension Status: Acute (4) ALEXANDRA (acute kidney injury): ALEXANDRA versus CKD. Baseline renal function unknown. Creatinine stable today. Avoid renal toxic medication Support blood pressure. Creatinine repeat for tomorrow. Status: Acute Plan History of gastric bypass: Avoid NSAIDs HTN DM2: Hold oral hypoglycemics. Insulin sliding scale. Consistent carbohydrate diet. HLD Attestations Medical Necessity Statement*: As per primary Coding Level of Care Code Acute Dye Beck Reel Operator for [facility] Fwd Diagnoses Hypotension I95.9 UTI (urinary tract infection) N39.0 Spondylolisthesis at L4-L5 level M43.16 ALEXANDRA (acute kidney injury) N17.9
[2021-12-19 10:40] LABS: Thyroid Stimulating Hormone 0.41 uIU/mL (0.27-4.20)
--- NOTE | 2021-12-19 10:42 | PC.PT ---
Hold per nurse Abril 10:30 a.m. Patient hypotensive early this morning and is on bedrest.
[2021-12-19 11:27] LABS: Glucose Point of Care 88 mg/dL (70-110)
[2021-12-19 11:27] LABS: Glucose Point of Care 130 mg/dL (70-110)
[2021-12-19] MEDS: hydrocortisone 100 mg/2 mL SDV 50 MG IVP ×2 (13:33→20:55)
[2021-12-19 18:02] LABS: Glucose Point of Care 188 mg/dL (70-110)
[2021-12-19] MEDS: insulin lispro 100 unit/1 mL SUBCUT ×2 (18:21→23:28)
[2021-12-19] MEDS: HYDROcodone-acetaminophen 5-325 mg Tablet PO (20:51)
[2021-12-19 23:25] LABS: Glucose Point of Care 217 mg/dL (70-110)
[2021-12-20] VITALS: BP 90/58; PULSE 70; RESP 17; TEMP 36.7; O2SAT 95
[2021-12-20 02:33] LABS: Basophils % 0.2 %; Eosinophils % 0.2 %; Hematocrit 32.2 % (37.0-47.0); Hemoglobin 10.1 g/dL (11.5-15.3); Lymphocytes # 0.7 10^3/uL (0.8-4.8); Lymphocytes % 7.6 %; Mean Corpuscular HGB Conc 31.4 g/dL (30.0-36.0); Mean Corpuscular Hemoglobin 27.6 pg (28.0-34.0); Mean Platelet Volume 10.1 fL (7.4-10.4); Monocytes # 0.4 10^3/uL (0.2-0.9); Monocytes % 4.6 %; Neutrophils # 8.28 10^3/uL (1.8-7.7); Neutrophils % 86.9 %; Nucleated Red Blood Cells % 0 %; Platelet Count 303 10^3/cmm (130-400); Red Blood Count 3.66 10^6/uL (4.1-5.3); Red Cell Distribution Width 13.7 % (12.1-15.1); White Blood Count 9.5 10^3/uL (4.0-10.0)
[2021-12-20 02:55] LABS: Alanine Aminotransferase 6 U/L (0-33); Albumin Level 3.5 g/dL (3.5-5.2); Alkaline Phosphatase 67 IU/L (35-105); Anion Gap 16.5 (5-19); Aspartate Amino Transferase 9 U/L (0-32); Blood Urea Nitrogen 45 mg/dL (6-20); Calcium 8.9 mg/dL (8.5-10.5); Carbon Dioxide 21 mmol/L (22-29); Chloride 104 mmol/L (98-107); Globulin 2.5 g/dL (1.3-4.6); Glucose 177 mg/dL (65-115); Osmolality Calculated 300 mOsm/kg (285-295); Potassium 4.5 mmol/L (3.5-5.1); Sodium 137 mmol/L (136-145); Total Bilirubin 0.2 mg/dL (0.15-1.2)
[2021-12-20 04:00] VITALS: BP 100/66; PULSE 65; RESP 17; TEMP 36.3; O2SAT 98
[2021-12-20] MEDS: lactated ringers 1,000 ML 90 ML IV (04:07)
[2021-12-20 06:24] LABS: Glucose Point of Care 164 mg/dL (70-110)
--- NOTE | 2021-12-20 07:01 | P.DS_ITS ---
Discharge Providers Date of Admission: 12/18/21 13:12 Date of Discharge: December 20, 2021 Attending Provider at Admission: Bran Estrada DO Attending Provider at Discharge: Bran Estrada DO Diagnoses at Discharge Discharge Diagnosis (1) Hypotension: Status: Acute (2) UTI (urinary tract infection): Status: Acute (3) Spondylolisthesis at L4-L5 level: Status: Acute (4) ALEXANDRA (acute kidney injury): Status: Acute Reason for Visit Reason for Visit: PLIF L4/5 [id number] Hospital Course Hospital Course Patient had episodes of low blood pressure. May be related to the narcotics. Otherwise the stay was uneventful. Physical Exam Narrative: Patient is feeling well today she is up walking yesterday with no problems with blood pressure patient pain is controlled. At this point plan will be to discharge her today pending okay from hospitalist service. Urinary Catheter Management: Sparks: Cath Placed During This Visit: yes, but has since been removed by the nurse Reason for Continuing Indwelling Catheter: Not indwelling catheter Urinary Catheter Date of Insertion: 12/18/21 Urinary Catheter Time of Insertion: 12:00 Date Urinary Catheter Removed: 12/19/21 Time Urinary Catheter Discontinued: 18:32 Discharge Data Studies Completed and Pending Completed Studies During Hospitalization Category Date Time Status XR lumbar spine 2-3V* [id number] Routine Exams 12/18/21 Completed CV. echo complete* [id number] Routine Ultrasound 12/19/21 06:10 Completed Pending at discharge Category Date Time Status Complete Blood Count w/Auto AM LABS Lab 12/21/21 04:00 Ordered Complete Blood Count w/Auto AM LABS Lab 12/22/21 04:00 Ordered Comprehensive Metabolic Panel AM LABS Lab 12/21/21 04:00 Ordered Comprehensive Metabolic Panel AM LABS Lab 12/22/21 04:00 Ordered Urine Culture Routine Lab 12/19/21 04:30 Received Radiology Impressions Lumbar Spine X-Ray 12/18/21 00:00 IMPRESSION: Intraoperative images of L4-L5 surgery as above. Laboratory Results WBC 9.5 10^3/uL (4.0-10.0) 12/20/21 02:03 RBC 3.66 10^6/uL (4.1-5.3) L 12/20/21 02:03 Hgb 10.1 g/dL (11.5-15.3) L 12/20/21 02:03 Hct 32.2 % (37.0-47.0) L 12/20/21 02:03 MCV 88.0 fl (81-99) 12/20/21 02:03 MCH 27.6 pg (28.0-34.0) L 12/20/21 02:03 MCHC 31.4 g/dL (30.0-36.0) 12/20/21 02:03 RDW 13.7 % (12.1-15.1) 12/20/21 02:03 Plt Count 303 10^3/cmm (130-400) 12/20/21 02:03 MPV 10.1 fL (7.4-10.4) 12/20/21 02:03 Neut % (Auto) 86.9 % 12/20/21 02:03 Lymph % (Auto) 7.6 % 12/20/21 02:03 [place] % (Auto) 4.6 % 12/20/21 02:03 Eos % (Auto) 0.2 % 12/20/21 02:03 Baso % (Auto) 0.2 % 12/20/21 02:03 Neut # (Auto) 8.28 10^3/uL (1.8-7.7) H 12/20/21 02:03 Lymph # (Auto) 0.7 10^3/uL (0.8-4.8) L 12/20/21 02:03 [place] # (Auto) 0.4 10^3/uL (0.2-0.9) 12/20/21 02:03 Eos # (Auto) 0.0 10^3/uL (0.0-0.8) 12/20/21 02:03 Baso # (Auto) 0.0 10^3/uL (0.0-0.1) 12/20/21 02:03 Nucleated RBC % (auto) 0 % 12/20/21 02:03 Nucleated RBCs # 0.0 /100WBC 12/20/21 02:03 Sodium 137 mmol/L (136-145) 12/20/21 02:03 Potassium 4.5 mmol/L (3.5-5.1) 12/20/21 02:03 Chloride 104 mmol/L (98-107) 12/20/21 02:03 Carbon Dioxide 21 mmol/L (22-29) L 12/20/21 02:03 Anion Gap 16.5 (5-19) 12/20/21 02:03 BUN 45 mg/dL (6-20) H 12/20/21 02:03 Creatinine 1.4 mg/dL (0.5-0.9) H 12/20/21 02:03 GFR Calculation 39.0 mL/min (90-130) L 12/20/21 02:03 Glucose 177 mg/dL (65-115) H 12/20/21 02:03 POC Glucose 164 mg/dL (70-110) H 12/20/21 06:11 Calculated Osmolality 300 mOsm/kg (285-295) H 12/20/21 02:03 Calcium 8.9 mg/dL (8.5-10.5) 12/20/21 02:03 Total Bilirubin 0.2 mg/dL (0.15-1.2) 12/20/21 02:03 AST 9 U/L (0-32) 12/20/21 02:03 ALT 6 U/L (0-33) 12/20/21 02:03 Alkaline Phosphatase 67 IU/L (35-105) 12/20/21 02:03 Total Protein 6.0 g/dL (6.6-8.7) L 12/20/21 02:03 Albumin 3.5 g/dL (3.5-5.2) 12/20/21 02:03 Globulin 2.5 g/dL (1.3-4.6) 12/20/21 02:03 TSH 0.41 uIU/mL (0.27-4.20) 12/19/21 07:18 Random Cortisol 2.92 ug/dL (2.47-19.5) 12/19/21 01:22 Urine Color Colorless (Yellow) 12/19/21 04:30 Urine Appearance Clear (CLEAR) 12/19/21 04:30 Urine pH 5 (5-7) 12/19/21 04:30 Ur Specific Ivor 1.015 (1.005-1.030) 12/19/21 04:30 Urine Protein Neg (Negative) 12/19/21 04:30 Urine Glucose (UA) 2+ (Normal) H 12/19/21 04:30 Urine Ketones 1+ (Negative) H 12/19/21 04:30 Urine Blood Neg (Negative) 12/19/21 04:30 Urine Nitrate Negative (Negative) 12/19/21 04:30 Urine Bilirubin Neg (Negative) 12/19/21 04:30 Urine Urobilinogen Norm mg/dL (Negative) 12/19/21 04:30 Ur Leukocyte Esterase 2+ (Negative) H 12/19/21 04:30 Urine RBC 0-4 /hpf (0-2) H 12/19/21 04:30 Urine WBC 25-40 /hpf (0-5) H 12/19/21 04:30 Ur Squamous Epith Cells 5-10 /hpf (0-5) H 12/19/21 04:30 Amorphous Sediment Not Reportable 12/19/21 04:30 Urine Bacteria 1+ /hpf (NONE) H 12/19/21 04:30 Serum Ketones Negative (Negative) 12/19/21 07:18 Blood Type B Positive 12/18/21 11:09 Rho(D) Type Positive 12/18/21 11:09 Antibody Screen Negative 12/18/21 11:09 Vitals Last Vital Signs Temp 97.4 F L 12/20/21 04:00 Pulse 65 12/20/21 04:00 Resp 17 12/20/21 04:00 BP 100/66 12/20/21 04:00 Pulse Ox 98 12/20/21 04:00 Discharge Plan Discharge Patient Disposition: Home Condition: Stable Prescriptions: New hydrocodone-acetaminophen 5-325 mg tablet 1 tab PO Q6H PRN (Reason: pain) 7 Days Qty: 30 0RF Continued gabapentin 800 mg tablet 800 mg PO TID 0RF duloxetine [Cymbalta] 30 mg capsule,delayed release(DR/EC) 30 mg PO DAILY 0RF Invokana 300 mg tablet 300 mg PO DAILY 0RF metformin 1,000 mg tablet 1,000 mg PO BID 0RF lisinopril-hydrochlorothiazide 20-25 mg tablet 1 tab PO DAILY 0RF atorvastatin [Lipitor] 20 mg tablet 20 mg PO DAILY 0RF diazepam [Valium] 5 mg tablet 5 mg PO ONCE 1 Days Qty: 1 0RF cyclobenzaprine 10 mg Tablet 10 mg PO TID PRN (Reason: muscle spasms) 0RF Ozempic 0.25 mg or 0.5 mg(2 mg/1.5 mL) Pen Injector 0.25 mg SUBCUT DIRECTED 0RF Rx Instructions: on thursday Discharge Orders: Discharge Order (Routine); Ordered 12/20/21 Ordered By: Bran Estrada Discharge Diet: Advance as tolerated Discharge Activity: Limit activity as instructed Patient Instructions: Opioid Safety Activity Restrictions/Additional Instructions: Thank you for [facility] for your care! The following is a list of instructions, from your provider, to follow upon your discharge to ensure you have the optimal recovery from your recent injury orsurgery. Follow-up care is a little part of your treatment and safety. Be sure to make and go to all appointments, and call your doctor if you are having problems. If you do not already have a follow-up appointment made, call Dr. Estrada office in the next 1-3 days to make follow up appointment for 1 weeks at [phone]. It is also a good idea to know your test results and keep a list of the medicines you take. Medications will be prescribed for you at your provider's discretion. These medications are to be used as instructed; if they are taken more often that prescribed they will not be refilled early and in most cases will not be refilled at all. > When a refill is needed,you should contact blanche davis 2-3 business days before your prescription runs out. Medications will NOT be refilled by ammonia refrigeration technician providers after hours! > Many pain medications contain Tylenol (Acetaminophen). Do not consume more than 4,000 mg of Tylenol per day in total with any combination ofmedic ations. > Pain medications can cause constipation. Please use an over the counter stool softener as directed, while taking pain medications. Consulty our local pharmacist with questions or recommendations on stool softeners. If constipation persists, contact our office or your primary care provider. > While under our care,you are not to receive pain medications or other controlled substances from any other provider unless our office is notified and approves. Any attempts to do so will result in refusal to prescribe any further pain medications and possible dismissal from our practice. ? Keep dressing on at all times ? Showering is permitted, however we ask that you do not take a bath, sit in a whirlpool / Jacuzzi, or go swimming for 1 month. For only the first 2 days after surgery, lt wilt be necessary for you to cover your wound/dressing with plastic and tape to keep it dry. ? Walking is essential for the healing process after surgery. We would like you to slowly advance your walking. This should be done on relatively flat clear ground (inside or out) or can be done on a treadmill. Remember this goal does not have to happen all at once, slowly increase your distance and duration. This can be broken into more more than one walk per day as tolerated. Patients who walk as directed after surgery rarely require Physical Therapy. In the unlikely event this issue arises your provider will direct hospital staff to make the appropriate arrangements. ? No lifting over 5 pounds {a gallon of milk) or bending/twisting until further notice. Each of these activities places an unnecessary amount of stress onto the body and can impede the delicate healing process. > Instead of bending at the waist, keep your back straight and bend at the knees. > Instead of twisting your torso, keep your back straight and turn your entire body with your feet. ? You may sleep in any position which makes you comfortable. Many patients find comfort sleeping in a reclining chair. It is not abnormal to have difficulty sleeping for the first several weeks following your surgery. We recommend trying Benadry! or Tylenol PM as directed to help with your sleeping difficulties. Both medications are over the counter and available withoutprescription. ? NO SMOKING!!! Smoking dramatically increases the probability of developing postoperative wound infections. ? Common complaints after lumbar and/or thoracic spine surgery include, but are not limited to: numbness and/or tingling in the legs, pain around the incision and surrounding tissues, muscle spasms, or stiffness of the middle to low back. Contact our office if these symptoms persist or if an acute change occurs. ? No driving for the first 3-5days, and not while taking narcotics [] until seen at your follow-up appointment and cleared. There are no restrictions for riding on short trips, however if you take a longer trip, arrangements should be made to make regular stops to get out of the vehicle and stretch . ? Swelling is an unfortunate event that will take place with any surgery and is the primary source of your postoperative discomfort. While walking and regular approved activities helps control inflammation, there are additional steps you can take to minimizeswelling. > Place ice over the surgical site and surrounding tissue for twenty minutes, followed by applying a low/medium heat (heating pad) for an additional twenty minutes every 1-2 hours as needed for painrelief. > You may use of over the counter anti-inflammatory medications (Ibuprofen, Motrin, Aleve, Advil, etc) as directed on the package label. These types of medicines wm significantly reduce the amount of discomfort you experience after surgery from swelling. It should be noted that if you have and allergy to any of these medications, or a history of ulcers or kidney disease you should consult you primary care provider prior to starting these medications. Discharge Attestations Time Spent in Discharge Care*: less than 30 min Quality Metrics Clinical Quality Measures [ No reported AMI, CVA or VTE this stay] Coding Level of Care Code Acute [facility] DC note Diagnoses Hypotension I95.9 UTI (urinary tract infection) N39.0 Spondylolisthesis at L4-L5 level M43.16 ALEXANDRA (acute kidney injury) N17.9
[2021-12-20 07:54] VITALS: BP 96/59; PULSE 64; RESP 16; TEMP 36.5; O2SAT 98
[2021-12-20] MEDS: insulin lispro 100 unit/1 mL SUBCUT (08:35)
[2021-12-20] MEDS: duloxetine 30 mg Capsule PO (08:35)
[2021-12-20] MEDS: atorvastatin 40 mg Tablet 20 MG PO (08:36)
[2021-12-20] MEDS: docusate sodium 100 mg Capsule PO (08:36)
[2021-12-20] MEDS: hydrocortisone 10 mg Tablet 40 MG PO (08:36)
[2021-12-20] MEDS: ciprofloxacin 400 MG/200 ML PREMIX 200 MG IV (08:38)
--- NOTE | 2021-12-20 08:52 | PM.PN ---
Subjective Subjective: Caroline reports she feels better. Most of her blood pressures have been over 90 systolic. She denies any dizziness. No shortness of breath. No abdominal pain or nausea. Medications: Reviewed: Yes Vitals/I&O/Wt Last Vital Signs Temp 97.7 F 12/20/21 07:54 Pulse 64 12/20/21 07:54 Resp 16 12/20/21 07:54 BP 96/59 12/20/21 07:54 Pulse Ox 98 12/20/21 07:54 12/19/21 12/20/21 12/20/21 22:59 06:59 14:59 Intake Total 537 / 1157 2120 / 3277 Output Total 1000 / 2500 Balance -463 / -1343 2120 / 777 Weight last 48 hrs Weight 110.223 kg Weight 114.577 kg Weight 110.677 kg Physical Exam Narrative: General exam no distress Neck is supple no lymphadenopathy thyromegaly Cardiovascular regular rate and rhythm without murmur Lungs clear Abdomen is soft, positive bowel sounds Extremities no cyanosis clubbing or edema Back demonstrates incision site clean and dry Urinary Catheter Management: Sparks: Cath Placed During This Visit: yes, but has since been removed by the nurse Reason for Continuing Indwelling Catheter: Not indwelling catheter Urinary Catheter Date of Insertion: 12/18/21 Urinary Catheter Time of Insertion: 12:00 Date Urinary Catheter Removed: 12/19/21 Time Urinary Catheter Discontinued: 18:32 Data : 12/20/21 02:03 12/20/21 02:03 A&P Assessment and plan (1) Hypotension: Received several boluses for low blood pressure, with responsiveness. Cortisol level was low considering scenario. Hydrocortisone initiated appropriately. Reduce dose of Neurontin on discharge. It was held here for approximately 36 hours to 48 hours. Unlikely UTI caused hypotension No evidence of significant blood loss to cause this. Patient reports some significant dizziness in the last year and 1 fainting episode. As improves, will reduce/taper steroid dose. Will need outpatient endocrine follow-up. Possible discharge today. We will perform orthostatic blood pressures, monitor till afternoon on oral steroids TSH was checked and normal Will check orthostatic blood pressures Echocardiogram checked and normal No suspicion at this time for pulmonary embolism. No evidence of tachycardia, or respiratory symptoms. Status: Acute (2) UTI (urinary tract infection): Continue ciprofloxacin. Culture pending. Likely will discharge today so we will provide 3 more days of treatment Status: Acute (3) Spondylolisthesis at L4-L5 level: Continue postoperative management. Very mild acute postoperative anemia, not enough to explain hypotension Status: Acute (4) ALEXANDRA (acute kidney injury): ALEXANDRA versus CKD. Baseline renal function unknown. Creatinine improved Avoid renal toxic medication Support blood pressure. Creatinine repeat for tomorrow. Status: Acute Plan History of gastric bypass: Avoid NSAIDs HTN DM2: Hold oral hypoglycemics. Insulin sliding scale. Consistent carbohydrate diet. HLD Attestations Medical Necessity Statement*: As per primary Coding Level of Care Code Acute [employer] Technician for g Fwd Diagnoses Hypotension I95.9 UTI (urinary tract infection) N39.0 Spondylolisthesis at L4-L5 level M43.16 ALEXANDRA (acute kidney injury) N17.9
[2021-12-20 09:44] VITALS: BP 102/69; BP 110/73; BP 93/61; PULSE 68; PULSE 75; PULSE 81
[2021-12-20 11:46] VITALS: BP 111/66; PULSE 96; RESP 17; TEMP 36.5; O2SAT 98
[2021-12-20 11:52] VITALS: BP 111/66; PULSE 96; RESP 17; TEMP 36.5; O2SAT 98
--- NOTE | 2021-12-20 11:53 | PC.NURSE ---
Discharge Note Patient discharged to home via wheelchair accompanied by spouse. Discharge instructions reviewed with patient and/or physician relations representative. Mobile pharmacy medications and/or prescriptions provided. Belongings/home medications returned.
[2021-12-20 11:56] LABS: Glucose Point of Care 142 mg/dL (70-110)
== END 2021-12-20 11:54 | disposition home or self-care (01) | DRG 454 ==
LOC: MEDSURG 13:13
PROVIDERS: Anesthesiology; Internal Medicine; Admitting Provider Orthopaedic Surgery; Visit Provider Orthopaedic Surgery
PROC: 0SG00AJ Fusion of Lumbar Vertebral Joint with Interbody Fusion Device, Posterior Approach, Anterior Column, Open Approach (ICD-10-PCS; CPT 22612; principal; 2021-12-18 12:00)
DX: M43.16 Spondylolisthesis, lumbar region (principal); N17.9 Acute kidney failure, unspecified; N39.0 Urinary tract infection, site not specified; Z87.891 Personal history of nicotine dependence; I95.9 Hypotension, unspecified; E11.22 Type 2 diabetes mellitus with diabetic chronic kidney disease; I12.9 Hypertensive chronic kidney disease with stage 1 through stage 4 chronic kidney disease, or unspecified chronic kidney disease; N18.9 Chronic kidney disease, unspecified; E78.5 Hyperlipidemia, unspecified; Z79.84 Long term (current) use of oral hypoglycemic drugs; Z98.84 Bariatric surgery status
CPT/HCPCS: 36415; 36416; 51702; 72100; 76000; 80048; 80053; 81001; 82009; 82533; 82962; 84443; 85025; 86850; 86900; 87086; 93005; 93306; 96372; 97161; C1713; J0330; J0744; J1100; J1170; J1644; J1720; J1815; J1885; J2250; J2405; J2704; J3010; J3370; J3490; J7030; J7040; J7050; J8499

== ENCOUNTER → 2022-02-06 08:31 | Outpatient (BNVA) | payer OTHER, SELFPAY | PROVIDERS: Visit Provider Orthopaedic Surgery | DX: Z98.1 Arthrodesis status (principal) | CPT/HCPCS: 72100 ==

== ENCOUNTER → 2022-03-13 08:38 | Outpatient (BNVA) | payer OTHER, SELFPAY | PROVIDERS: Visit Provider Orthopaedic Surgery | DX: Z47.89 Encounter for other orthopedic aftercare (principal) | CPT/HCPCS: 72100 ==